=== PATIENT | female | born 2000 | race African-American/Black ===

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

== ENCOUNTER 2022-08-22 11:03 | Emergency (ER) | payer OTHER ==
[2022-08-22] MEDS ORDERED: Ibuprofen 800 MG TAB ONE (14:18)
[2022-08-22 15:24] LABS: #Eosinphils 0.4 thou/uL (0.0-0.7); #Lymphocytes 3.8 thou/uL (1.20-3.40); #Monocytes 0.9 thou/uL (0.11-0.59); #Neutrophils 6.3 thou/uL (1.40-6.50); %Basophils 0.4 % (0.0-1.0); %Eosinophils 3.3 % (0.0-10.0); %Lymphocytes 33.3 % (28.0-48.0); %Monocytes 7.6 % (0.0-4.0); %Neutrophils 55.4 % (31.0-61.0); Hemoglobin 13.7 g/dL (12.0-16.0); Mean Corpuscular HGB CONC 32.2 g/dL (32.0-36.0); Mean Corpuscular Hemoglobin 28.2 pg (25.0-35.0); Mean Corpuscular Volume 87.7 fl (78.0-98.0); Mean Platelet Volume 6.8 fL (7.4-10.4); Platelet Count 281 10x3/uL (130-400); RBC Distribution Width 12.2 % (11.5-14.5); Red Blood Cell (RBC) Count 4.85 mill/uL (4.00-5.20); White Blood Cell (WBC) Count 11.4 10x3/uL (4.8-10.8)
[2022-08-22 15:47] LABS: ALT (SGPT) 11 U/L (8-55); AST (SGOT) 14 U/L (5-34); Albumin 3.8 g/dL (3.5-5.0); Alkaline Phosphatase 93 U/L (40-100); Anion Gap 11 mmol/L (10-20); BUN (Urea Nitrogen) 11 mg/dL (7.0-18.7); Bilirubin, Total 0.5 mg/dL (0.2-1.2); Calc. Creatinine Clearance 0 mL/min (70-130); Calcium 8.8 mg/dL (7.8-10.44); Carbon Dioxide 23 mmol/L (22-29); Chloride 106 mmol/L (98-107); Estimated GFR 103; Globulin 3.1 g/dL (2.4-3.5); Glucose 88 mg/dL (70-105); Potassium 4.1 mmol/L (3.5-5.1); Protein, Total 6.9 g/dL (6.0-8.3); Sodium 136 mmol/L (136-145)
== END 2022-08-22 16:20 | disposition home or self-care (01) ==
LOC: ERS 11:03
DX: J30.2 Other seasonal allergic rhinitis (principal); D72.829 Elevated white blood cell count, unspecified
CPT/HCPCS: 36415; 71045; 80053; 84484; 85025; 85379; 93005